=== PATIENT | female | born 1930 | race Native Hawaiian/Other Pacific Islander ===

== ENCOUNTER 2016-06-11 09:03 | Inpatient (IN) | payer OTHER | END 2016-07-12 08:00 | disposition still patient (30) | LOC: PAVB 09:03 | PROVIDERS: ADMIT Internal Medicine | DX: Z51.89 Encounter for other specified aftercare (principal) ==

== ENCOUNTER 2016-07-12 09:00 | Inpatient (IN) | payer OTHER ==
[2016-08-07] MEDS ORDERED: AMLO2.5T PO (06:51)
[2016-08-07] MEDS ORDERED: ATEN50TA36 PO (06:52)
[2016-08-07] MEDS ORDERED: CULTURELL3 PO (06:52)
[2016-08-07] MEDS ORDERED: FURO20TA67 PO (06:53)
[2016-08-07] MEDS ORDERED: GABA400C2 PO (06:54)
[2016-08-07] MEDS ORDERED: MAGNESIUM OXID400 M1 PO (06:54)
[2016-08-07] MEDS ORDERED: METF500T PO (06:55)
[2016-08-07] MEDS ORDERED: SINGULAIR10 MG PO (06:56)
[2016-08-07] MEDS ORDERED: MULTIVITAMI1 PO (06:57)
[2016-08-07] MEDS ORDERED: NAPROSYN500 MG PO (06:57)
[2016-08-07] MEDS ORDERED: OXYB5TAB56 PO (06:59)
[2016-08-07] MEDS ORDERED: OMEP40CA PO (06:59)
[2016-08-07] MEDS ORDERED: DEXTLIQ63 PO (07:00)
[2016-08-07] MEDS ORDERED: WARF3TAB12 PO (07:01)
[2016-08-07] MEDS ORDERED: VALSARTAN160 MG PO (07:01)
[2016-08-07] MEDS ORDERED: LORA10TA3 PO (07:02)
[2016-08-07] MEDS ORDERED: [UNRECOGNIZED DRUG - CODE] PO (07:04)
[2016-08-07] MEDS ORDERED: CALCIUM CARBON600 MG PO (07:05)
[2016-08-07] MEDS ORDERED: ARTIFICIAL TEAR1 OP (07:06)
[2016-08-07] MEDS ORDERED: BENADRYL ALLERG25 M1 PO (07:07)
[2016-08-07] MEDS ORDERED: ONDA4TAB3 PO (07:08)
[2016-08-07] MEDS ORDERED: TRAM50TA PO (07:08)
== END 2016-08-12 10:54 | disposition still patient (30) ==
LOC: PAVB 09:00
PROVIDERS: ADMIT Internal Medicine
DX: Z51.89 Encounter for other specified aftercare (principal)

== ENCOUNTER 2016-07-13 07:14 | Outpatient (CLI) | payer OTHER | END 2016-07-13 19:19 | disposition home or self-care (01) | LOC: LAB 07:14 | DX: Z79.899 Other long term (current) drug therapy (principal); Z51.81 Encounter for therapeutic drug level monitoring | CPT/HCPCS: 36415; 85610 ==

== ENCOUNTER 2016-08-07 06:34 | Emergency (ER) | payer OTHER ==
[~2016-08-07] VITALS: Ht 165.1 cm; Wt 70.8 kg
[2016-08-07] MEDS ORDERED: AMLO2.5T PO (06:51)
[2016-08-07] MEDS ORDERED: CULTURELL3 PO (06:52)
[2016-08-07] MEDS ORDERED: ATEN50TA36 PO (06:52)
[2016-08-07] MEDS ORDERED: FURO20TA67 PO (06:53)
[2016-08-07] MEDS ORDERED: GABA400C2 PO (06:54)
[2016-08-07] MEDS ORDERED: MAGNESIUM OXID400 M1 PO (06:54)
[2016-08-07] MEDS ORDERED: METF500T PO (06:55)
[2016-08-07] MEDS ORDERED: SINGULAIR10 MG PO (06:56)
[2016-08-07] MEDS ORDERED: MULTIVITAMI1 PO (06:57)
[2016-08-07] MEDS ORDERED: NAPROSYN500 MG PO (06:57)
[2016-08-07] MEDS ORDERED: OMEP40CA PO (06:59)
[2016-08-07] MEDS ORDERED: OXYB5TAB56 PO (06:59)
[2016-08-07] MEDS ORDERED: DEXTLIQ63 PO (07:00)
[2016-08-07] MEDS ORDERED: VALSARTAN160 MG PO (07:01)
[2016-08-07] MEDS ORDERED: WARF3TAB12 PO (07:01)
[2016-08-07] MEDS ORDERED: LORA10TA3 PO (07:02)
[2016-08-07] MEDS ORDERED: [UNRECOGNIZED DRUG - CODE] PO (07:04)
[2016-08-07] MEDS ORDERED: CALCIUM CARBON600 MG PO (07:05)
[2016-08-07] MEDS ORDERED: ARTIFICIAL TEAR1 OP (07:06)
[2016-08-07] MEDS ORDERED: BENADRYL ALLERG25 M1 PO (07:07)
[2016-08-07] MEDS ORDERED: TRAM50TA PO (07:08)
[2016-08-07] MEDS ORDERED: ONDA4TAB3 PO (07:08)
[2016-08-07 07:54] VITALS: BP 140/72; TEMP 98.1
== END 2016-08-07 08:27 ==
LOC: ED 06:34
PROC: 2W3RX1Z Immobilization of Left Lower Leg using Splint (ICD-10-PCS; principal; 2016-08-07)
DX: S82.392A Other fracture of lower end of left tibia, initial encounter for closed fracture (principal); S82.832A Other fracture of upper and lower end of left fibula, initial encounter for closed fracture; W01.0XXA Fall on same level from slipping, tripping and stumbling without subsequent striking against object, initial encounter; Y92.128 Other place in nursing home as the place of occurrence of the external cause
CPT/HCPCS: 99283; J1885

== ENCOUNTER 2016-08-10 05:53 | Outpatient (CLI) | payer OTHER ==
[~2016-08-10 05:53] MED LIST: AMLO2.5T PO; ARTIFICIAL TEAR1 OP; ATEN50TA36 PO; BENADRYL ALLERG25 M1 PO; CALCIUM CARBON600 MG PO; CULTURELL3 PO; DEXTLIQ63 PO; FURO20TA67 PO; GABA400C2 PO; LORA10TA3 PO; MAGNESIUM OXID400 M1 PO; METF500T PO; MULTIVITAMI1 PO; NAPROSYN500 MG PO; OMEP40CA PO; ONDA4TAB3 PO; OXYB5TAB56 PO; SINGULAIR10 MG PO; TRAM50TA PO; VALSARTAN160 MG PO; WARF3TAB12 PO; [UNRECOGNIZED DRUG - CODE] PO
== END 2016-08-10 19:50 | disposition home or self-care (01) ==
LOC: LAB 05:53
DX: R41.82 Altered mental status, unspecified (principal)
CPT/HCPCS: 81000; 87077; 87086; 87088; 87186

== ENCOUNTER 2016-08-11 09:59 | Outpatient (CLI) | payer OTHER | END 2016-08-11 19:44 | disposition home or self-care (01) | LOC: RAD 09:59 | DX: M85.88 Other specified disorders of bone density and structure, other site (principal) ==

== ENCOUNTER 2016-08-12 11:43 | Inpatient (IN) | payer OTHER | END 2016-09-09 12:34 | disposition still patient (30) | LOC: PAVB 11:43 | PROVIDERS: ADMIT Internal Medicine | DX: Z51.89 Encounter for other specified aftercare (principal) ==

== ENCOUNTER 2016-08-14 06:06 | Outpatient (CLI) | payer OTHER | END 2016-08-14 07:06 | disposition home or self-care (01) | LOC: LAB 06:06 | DX: Z79.899 Other long term (current) drug therapy (principal); Z51.81 Encounter for therapeutic drug level monitoring | CPT/HCPCS: 36415; 85610 ==

== ENCOUNTER 2016-08-23 15:28 | Outpatient (CLI) | payer OTHER | END 2016-08-23 18:54 | disposition home or self-care (01) | LOC: RAD 15:28 | DX: S82.232D Displaced oblique fracture of shaft of left tibia, subsequent encounter for closed fracture with routine healing (principal) ==

== ENCOUNTER 2016-08-30 22:39 | Outpatient (CLI) | payer OTHER | END 2016-08-30 23:00 | disposition home or self-care (01) | LOC: LAB 22:39 | DX: N39.0 Urinary tract infection, site not specified (principal) | CPT/HCPCS: 81000 ==

== ENCOUNTER 2016-09-03 14:21 | Outpatient (CLI) | payer OTHER | END 2016-09-03 19:24 | disposition home or self-care (01) | LOC: LAB 14:21 | DX: R41.82 Altered mental status, unspecified (principal) | CPT/HCPCS: 36415; 82140 ==

== ENCOUNTER 2016-09-09 12:47 | Inpatient (IN) | payer OTHER | END 2016-10-10 08:10 | disposition still patient (30) | LOC: PAVB 12:47 | PROVIDERS: ADMIT Internal Medicine | DX: Z51.89 Encounter for other specified aftercare (principal) ==

== ENCOUNTER 2016-09-10 06:25 | Outpatient (CLI) | payer OTHER | END 2016-09-10 19:28 | disposition home or self-care (01) | LOC: LAB 06:25 | DX: Z51.81 Encounter for therapeutic drug level monitoring (principal) | CPT/HCPCS: 36415; 85610 ==

== ENCOUNTER 2016-09-13 14:38 | Outpatient (CLI) | payer OTHER | END 2016-09-13 19:00 | disposition home or self-care (01) | LOC: RAD 14:38 | DX: S82.832D Other fracture of upper and lower end of left fibula, subsequent encounter for closed fracture with routine healing (principal); S82.392D Other fracture of lower end of left tibia, subsequent encounter for closed fracture with routine healing ==

== ENCOUNTER 2016-09-14 03:52 | Outpatient (CLI) | payer OTHER | END 2016-09-14 19:30 | disposition home or self-care (01) | LOC: LAB 03:52 | DX: Z51.81 Encounter for therapeutic drug level monitoring (principal) | CPT/HCPCS: 36415; 85610 ==

== ENCOUNTER 2016-10-04 18:04 | Outpatient (CLI) | payer OTHER | END 2016-10-04 18:59 | disposition home or self-care (01) | LOC: RAD 18:04 | DX: S82.292D Other fracture of shaft of left tibia, subsequent encounter for closed fracture with routine healing (principal); S82.492D Other fracture of shaft of left fibula, subsequent encounter for closed fracture with routine healing ==

== ENCOUNTER 2016-10-10 09:07 | Inpatient (IN) | payer OTHER | END 2016-11-09 09:17 | disposition still patient (30) | LOC: PAVB 09:07 | PROVIDERS: ADMIT Internal Medicine | DX: A41.9 Sepsis, unspecified organism (principal); N39.0 Urinary tract infection, site not specified; M62.81 Muscle weakness (generalized); M84.469D Pathological fracture, unspecified tibia and fibula, subsequent encounter for fracture with routine healing; F02.81 Dementia in other diseases classified elsewhere, unspecified severity, with behavioral disturbance; R26.9 Unspecified abnormalities of gait and mobility | CPT/HCPCS: 81000; 87081; J0696 ==

== ENCOUNTER 2016-10-13 04:52 | Outpatient (CLI) | payer OTHER | END 2016-10-13 05:52 | disposition home or self-care (01) | LOC: LAB 04:52 | DX: Z51.81 Encounter for therapeutic drug level monitoring (principal) | CPT/HCPCS: 85610 ==

== ENCOUNTER 2016-10-15 04:35 | Outpatient (CLI) | payer OTHER | END 2016-10-15 19:01 | disposition home or self-care (01) | LOC: LAB 04:35 | DX: N39.0 Urinary tract infection, site not specified (principal) | CPT/HCPCS: 81000; 87077; 87086; 87088; 87186 ==

== ENCOUNTER 2016-10-18 05:37 | Outpatient (CLI) | payer OTHER ==
[2016-10-18 06:15] LABS: PLATELET COUNT 252 K/uL (152-353)
== END 2016-10-18 21:15 | disposition home or self-care (01) ==
LOC: LAB 05:37
PROVIDERS: Internal Medicine
DX: R50.9 Fever, unspecified (principal)
CPT/HCPCS: 36415; 85027

== ENCOUNTER 2016-10-18 12:08 | Inpatient (IN) | payer OTHER ==
[2016-10-18] VITALS (30 sets, daily range): BP systolic 76–143; BP diastolic 36–133; TEMP 98.4–102.9; Ht 152.4 cm; Wt 67.7 kg
[~2016-10-18] VITALS: Ht 152.4 cm; Wt 67.7 kg
[2016-10-18 12:53] LABS: PLATELET COUNT 228 K/uL (152-353)
[2016-10-18 12:55] LABS: POTASSIUM 3.9 mmol/L (3.6-5.2)
[2016-10-19] VITALS (45 sets, daily range): BP systolic 76–154; BP diastolic 33–105; TEMP 97.8–100.6
[2016-10-19 00:31] LABS: PLATELET COUNT 201 K/uL (152-353)
[2016-10-19 00:37] LABS: POTASSIUM 3.9 mmol/L (3.6-5.2)
[2016-10-19 07:31] LABS: PLATELET COUNT 199 K/uL (152-353)
[2016-10-19 08:42] LABS: POTASSIUM 4.3 mmol/L (3.6-5.2)
[2016-10-19 19:11] LABS: POTASSIUM 3.6 mmol/L (3.6-5.2)
[2016-10-20] VITALS (12 sets, daily range): BP systolic 108–157; BP diastolic 48–81; TEMP 96.8–98.9
[2016-10-20 06:49] LABS: PLATELET COUNT 205 K/uL (152-353)
[2016-10-20 06:50] LABS: POTASSIUM 3.3 mmol/L (3.6-5.2)
[2016-10-21] VITALS: BP 107/49; TEMP 98.7
[2016-10-21 04:00] VITALS: BP 118/51; TEMP 99
[2016-10-21 07:57] LABS: PLATELET COUNT 217 K/uL (152-353)
[2016-10-21 08:00] VITALS: BP 154/65; TEMP 98.1
[2016-10-21 08:14] LABS: POTASSIUM 3.3 mmol/L (3.6-5.2)
[2016-10-21 12:14] VITALS: BP 128/67; TEMP 97.8
[2016-10-21 16:00] VITALS: BP 143/59; TEMP 98
[2016-10-21 20:00] VITALS: BP 106/53; TEMP 98.4
[2016-10-22] VITALS: BP 113/39; TEMP 98.6
[2016-10-22 04:00] VITALS: BP 100/37; TEMP 98.6
[2016-10-22 05:19] LABS: PLATELET COUNT 214 K/uL (152-353)
[2016-10-22 05:38] LABS: POTASSIUM 3.6 mmol/L (3.6-5.2)
[2016-10-22 08:00] VITALS: BP 96/44; TEMP 98.6
[2016-10-22 12:00] VITALS: BP 123/63; TEMP 98.8
== END 2016-10-22 15:15 | DRG 872 ==
LOC: ED 12:08 → ICU 13:42 → MED/SURG 10-20 16:45
PROVIDERS: Emergency Medicine; ADMIT Specialist
PROC: 02HV33Z Insertion of Infusion Device into Superior Vena Cava, Percutaneous Approach (ICD-10-PCS; principal; 2016-10-19)
DX: A41.89 Other specified sepsis (principal); N39.0 Urinary tract infection, site not specified; E87.3 Alkalosis; B96.20 Unspecified Escherichia coli [E. coli] as the cause of diseases classified elsewhere; R41.82 Altered mental status, unspecified; I95.89 Other hypotension; R09.02 Hypoxemia; E11.9 Type 2 diabetes mellitus without complications; E86.0 Dehydration; R09.89 Other specified symptoms and signs involving the circulatory and respiratory systems; R50.9 Fever, unspecified
CPT/HCPCS: 36415; 36591; 36600; 51702; 80053; 81000; 82550; 82805; 82962; 83036; 83605; 83735; 83880; 84100; 84484; 85027; 85379; 85610; 87040; 87077; 87086; 87088; 87186; 93005; 93306; 94640; 94664; 94760; 96361; 96365; 96366; 96372; 96375; 99285; C1751; J1265; J1650; J1720; J1815; J1940; J2185; J3411; J3475; J3480; J3490

== ENCOUNTER 2016-11-09 10:33 | Inpatient (IN) | payer OTHER ==
[2016-11-22] MEDS ORDERED: DIOVAN320 MG PO (14:58)
[2016-11-22] MEDS ORDERED: ASCO500T18 PO (15:00)
[2016-11-22] MEDS ORDERED: ALEN70TA19 PO (15:01)
[2016-11-22] MEDS ORDERED: RISP0.5T2 PO (15:03)
== END 2016-12-10 10:16 | disposition still patient (30) ==
LOC: PAVB 10:33
PROVIDERS: ADMIT Internal Medicine
DX: A41.9 Sepsis, unspecified organism (principal); N39.0 Urinary tract infection, site not specified; M62.81 Muscle weakness (generalized); M84.469D Pathological fracture, unspecified tibia and fibula, subsequent encounter for fracture with routine healing; F02.81 Dementia in other diseases classified elsewhere, unspecified severity, with behavioral disturbance; R26.9 Unspecified abnormalities of gait and mobility
CPT/HCPCS: 85610

== ENCOUNTER 2016-11-21 11:39 | Outpatient (CLI) | payer OTHER ==
[2016-11-22] MEDS ORDERED: DIOVAN320 MG PO (14:58)
[2016-11-22] MEDS ORDERED: ASCO500T18 PO (15:00)
[2016-11-22] MEDS ORDERED: ALEN70TA19 PO (15:01)
[2016-11-22] MEDS ORDERED: RISP0.5T2 PO (15:03)
== END 2016-11-21 21:07 | disposition home or self-care (01) ==
LOC: LAB 11:39
DX: R41.82 Altered mental status, unspecified (principal); Z87.440 Personal history of urinary (tract) infections
CPT/HCPCS: 81000; 87077; 87086; 87088; 87185; 87186

== ENCOUNTER 2016-11-22 11:14 | Inpatient (IN) | payer OTHER ==
[2016-11-22] VITALS (22 sets, daily range): BP systolic 80–114; BP diastolic 34–87; TEMP 97.5–100; Ht 172.7 cm; Wt 61.3 kg
[~2016-11-22] VITALS: Ht 172.7 cm; Wt 61.3 kg
[2016-11-22 13:15] LABS: PLATELET COUNT 300 K/uL (152-353)
[2016-11-22 13:26] LABS: POTASSIUM 4.2 mmol/L (3.6-5.2)
[2016-11-22] MEDS ORDERED: DIOVAN320 MG PO (14:58)
[2016-11-22] MEDS ORDERED: ASCO500T18 PO (15:00)
[2016-11-22] MEDS ORDERED: ALEN70TA19 PO (15:01)
[2016-11-22] MEDS ORDERED: RISP0.5T2 PO (15:03)
[2016-11-23] VITALS (25 sets, daily range): BP systolic 75–141; BP diastolic 39–116; TEMP 97.6–99.5
[2016-11-23 05:13] LABS: PLATELET COUNT 302 K/uL (152-353)
[2016-11-23 05:37] LABS: POTASSIUM 4.4 mmol/L (3.6-5.2)
[2016-11-24] VITALS (17 sets, daily range): BP systolic 100–158; BP diastolic 56–93; TEMP 98–98.4
[2016-11-24 06:24] LABS: PLATELET COUNT 285 K/uL (152-353)
[2016-11-24 06:38] LABS: POTASSIUM 3.6 mmol/L (3.6-5.2)
[2016-11-25] VITALS (17 sets, daily range): BP systolic 98–168; BP diastolic 42–94; TEMP 97–98.4
[2016-11-25 06:13] LABS: PLATELET COUNT 305 K/uL (152-353); POTASSIUM 4.2 mmol/L (3.6-5.2); SODIUM 136 mmol/L (136-145)
[2016-11-26] VITALS (7 sets, daily range): BP systolic 137–162; BP diastolic 8–84; TEMP 97.6–98.6
[2016-11-26 06:33] LABS: PLATELET COUNT 288 K/uL (152-353)
[2016-11-26 06:53] LABS: POTASSIUM 3.5 mmol/L (3.6-5.2); SODIUM 137 mmol/L (136-145)
== END 2016-11-26 17:45 | DRG 872 ==
LOC: ICU 11:14
PROVIDERS: Emergency Medicine; ADMIT Internal Medicine
PROC: 0DH63UZ Insertion of Feeding Device into Stomach, Percutaneous Approach (ICD-10-PCS; principal; 2016-11-23)
PROC: 02HV33Z Insertion of Infusion Device into Superior Vena Cava, Percutaneous Approach (ICD-10-PCS; 2016-11-25)
DX: A41.89 Other specified sepsis (principal); N39.0 Urinary tract infection, site not specified; B95.2 Enterococcus as the cause of diseases classified elsewhere; I95.89 Other hypotension; R41.82 Altered mental status, unspecified; K21.9 Gastro-esophageal reflux disease without esophagitis; E11.9 Type 2 diabetes mellitus without complications; I48.2 Chronic atrial fibrillation; R13.12 Dysphagia, oropharyngeal phase; Z87.440 Personal history of urinary (tract) infections
CPT/HCPCS: 36415; 36571; 51702; 80053; 81000; 82550; 82553; 82962; 83605; 83735; 84100; 84484; 85027; 85610; 87040; 87077; 87081; 87086; 87088; 87185; 87186; 93005; C1751; J0290; J1885; J2001; J2060; J2704; J2794; J3475; J3486; J3490

== ENCOUNTER 2016-11-29 13:44 | Outpatient (CLI) | payer OTHER ==
[~2016-11-29 13:44] MED LIST changes: +ALEN70TA19 PO; +ASCO500T18 PO; +DIOVAN320 MG PO; +RISP0.5T2 PO
== END 2016-11-29 15:00 | disposition home or self-care (01) ==
LOC: RAD 13:44
DX: S82.392K Other fracture of lower end of left tibia, subsequent encounter for closed fracture with nonunion (principal)

== ENCOUNTER 2016-12-10 10:29 | Inpatient (IN) | payer OTHER ==
[2016-12-14 07:23] LABS: POTASSIUM 5.1 mmol/L (3.6-5.2)
[2016-12-14 07:50] LABS: PLATELET COUNT 369 K/uL (152-353)
== END 2017-01-09 15:26 | disposition still patient (30) ==
LOC: PAVB 10:29
PROVIDERS: ADMIT Internal Medicine
DX: Z51.89 Encounter for other specified aftercare (principal)
CPT/HCPCS: 80053; 83036; 83735; 85007; 85027; 85610

== ENCOUNTER 2017-01-09 15:59 | Inpatient (IN) | payer OTHER | END 2017-02-09 09:48 | disposition still patient (30) | LOC: PAVB 15:59 | PROVIDERS: ADMIT Internal Medicine | DX: Z51.89 Encounter for other specified aftercare (principal) ==

== ENCOUNTER 2017-01-13 03:30 | Outpatient (CLI) | payer OTHER | END 2017-01-13 18:59 | disposition home or self-care (01) | LOC: LAB 03:30 | DX: Z79.899 Other long term (current) drug therapy (principal); Z79.01 Long term (current) use of anticoagulants; Z51.81 Encounter for therapeutic drug level monitoring; E83.42 Hypomagnesemia | CPT/HCPCS: 36415; 83735; 85610 ==

== ENCOUNTER 2017-02-09 11:22 | Inpatient (IN) | payer OTHER | END 2017-03-12 08:46 | disposition still patient (30) | LOC: PAVB 11:22 | PROVIDERS: ADMIT Internal Medicine | DX: Z51.89 Encounter for other specified aftercare (principal) ==

== ENCOUNTER 2017-02-10 13:29 | Outpatient (CLI) | payer OTHER | END 2017-02-10 19:39 | disposition home or self-care (01) | LOC: LAB 13:29 | DX: Z79.01 Long term (current) use of anticoagulants (principal); Z51.81 Encounter for therapeutic drug level monitoring | CPT/HCPCS: 36415; 85610 ==

== ENCOUNTER 2017-02-15 06:07 | Outpatient (CLI) | payer OTHER | END 2017-02-15 19:18 | disposition home or self-care (01) | LOC: LAB 06:07 | DX: Z79.899 Other long term (current) drug therapy (principal); Z51.81 Encounter for therapeutic drug level monitoring | CPT/HCPCS: 85610 ==

== ENCOUNTER 2017-03-12 09:33 | Inpatient (IN) | payer OTHER | END 2017-04-11 10:10 | disposition still patient (30) | LOC: PAVB 09:33 | PROVIDERS: ADMIT Internal Medicine | DX: Z51.89 Encounter for other specified aftercare (principal) ==

== ENCOUNTER 2017-03-15 06:50 | Outpatient (CLI) | payer OTHER | END 2017-03-15 18:58 | disposition home or self-care (01) | LOC: LAB 06:50 | DX: Z51.81 Encounter for therapeutic drug level monitoring (principal) | CPT/HCPCS: 85610 ==

== ENCOUNTER 2017-04-11 10:21 | Inpatient (IN) | payer OTHER | END 2017-05-12 13:02 | disposition still patient (30) | LOC: PAVB 10:21 | PROVIDERS: ADMIT Internal Medicine ==

== ENCOUNTER 2017-04-13 06:21 | Outpatient (CLI) | payer OTHER | END 2017-04-13 07:25 | disposition home or self-care (01) | LOC: LAB 06:21 | DX: Z79.899 Other long term (current) drug therapy (principal); Z79.01 Long term (current) use of anticoagulants; Z51.81 Encounter for therapeutic drug level monitoring | CPT/HCPCS: 36415; 85610 ==

== ENCOUNTER 2017-05-12 14:10 | Inpatient (IN) | payer OTHER | END 2017-06-11 09:24 | disposition still patient (30) | LOC: PAVB 14:10 | PROVIDERS: ADMIT Internal Medicine ==

== ENCOUNTER 2017-05-17 11:37 | Outpatient (CLI) | payer OTHER | END 2017-05-17 12:40 | disposition home or self-care (01) | LOC: LAB 11:37 | DX: Z79.899 Other long term (current) drug therapy (principal); Z51.81 Encounter for therapeutic drug level monitoring | CPT/HCPCS: 85610 ==

== ENCOUNTER 2017-06-09 08:32 | Outpatient (CLI) | payer OTHER | END 2017-06-09 19:32 | disposition home or self-care (01) | LOC: CT 08:32 | DX: R29.6 Repeated falls (principal); S00.83XA Contusion of other part of head, initial encounter; R22.0 Localized swelling, mass and lump, head; R07.81 Pleurodynia ==

== ENCOUNTER 2017-06-10 18:55 | Outpatient (CLI) | payer OTHER | END 2017-06-10 20:00 | disposition home or self-care (01) | LOC: RAD 18:55 | DX: M79.641 Pain in right hand (principal); M25.531 Pain in right wrist ==

== ENCOUNTER 2017-06-11 10:01 | Inpatient (IN) | payer OTHER | END 2017-07-12 09:43 | disposition still patient (30) | LOC: PAVB 10:01 | PROVIDERS: ADMIT Internal Medicine ==

== ENCOUNTER 2017-06-14 06:09 | Outpatient (CLI) | payer OTHER | END 2017-06-14 07:10 | disposition home or self-care (01) | LOC: LAB 06:09 | DX: Z79.899 Other long term (current) drug therapy (principal); Z51.81 Encounter for therapeutic drug level monitoring | CPT/HCPCS: 36415; 85610 ==

== ENCOUNTER 2017-07-12 10:48 | Inpatient (IN) | payer OTHER | END 2017-08-12 09:59 | disposition still patient (30) | LOC: PAVB 10:48 | PROVIDERS: ADMIT Internal Medicine ==

== ENCOUNTER 2017-07-13 06:34 | Outpatient (CLI) | payer OTHER | END 2017-07-13 21:15 | disposition home or self-care (01) | LOC: LAB 06:34 | DX: Z79.899 Other long term (current) drug therapy (principal); Z51.81 Encounter for therapeutic drug level monitoring | CPT/HCPCS: 85610 ==

== ENCOUNTER 2017-08-12 11:04 | Inpatient (IN) | payer OTHER | END 2017-09-09 09:23 | disposition still patient (30) | LOC: PAVB 11:04 | PROVIDERS: ADMIT Internal Medicine ==

== ENCOUNTER 2017-08-16 05:55 | Outpatient (CLI) | payer OTHER | END 2017-08-16 20:21 | disposition home or self-care (01) | LOC: LAB 05:55 | DX: Z79.899 Other long term (current) drug therapy (principal); Z51.81 Encounter for therapeutic drug level monitoring | CPT/HCPCS: 36415; 85610 ==

== ENCOUNTER 2017-09-09 10:27 | Inpatient (IN) | payer OTHER | END 2017-10-10 08:00 | disposition still patient (30) | LOC: PAVB 10:27 | PROVIDERS: ADMIT Internal Medicine ==

== ENCOUNTER 2017-09-27 04:31 | Outpatient (CLI) | payer OTHER | END 2017-09-27 19:17 | disposition home or self-care (01) | LOC: LAB 04:31 | DX: Z51.81 Encounter for therapeutic drug level monitoring (principal) | CPT/HCPCS: 36415; 85610 ==

== ENCOUNTER 2017-10-10 09:00 | Inpatient (IN) | payer OTHER | END 2017-11-09 09:09 | disposition still patient (30) | LOC: PAVB 09:00 | PROVIDERS: ADMIT Internal Medicine ==

== ENCOUNTER 2017-10-13 06:20 | Outpatient (CLI) | payer OTHER | END 2017-10-13 22:24 | disposition home or self-care (01) | LOC: LAB 06:20 | DX: Z79.899 Other long term (current) drug therapy (principal); Z51.81 Encounter for therapeutic drug level monitoring | CPT/HCPCS: 85610 ==

== ENCOUNTER 2017-11-01 15:34 | Outpatient (CLI) | payer OTHER | END 2017-11-01 22:52 | disposition home or self-care (01) | LOC: CT 15:34 | DX: R41.82 Altered mental status, unspecified (principal) ==

== ENCOUNTER 2017-11-09 10:08 | Inpatient (IN) | payer OTHER | END 2017-12-10 08:56 | disposition still patient (30) | LOC: PAVB 10:08 | PROVIDERS: ADMIT Internal Medicine ==

== ENCOUNTER 2017-11-10 09:39 | Outpatient (CLI) | payer OTHER | END 2017-11-10 21:39 | disposition home or self-care (01) | LOC: LAB 09:39 | DX: I48.0 Paroxysmal atrial fibrillation (principal); Z79.899 Other long term (current) drug therapy; Z51.81 Encounter for therapeutic drug level monitoring | CPT/HCPCS: 85610 ==

== ENCOUNTER 2017-12-10 09:55 | Inpatient (IN) | payer OTHER | END 2018-01-09 15:02 | disposition still patient (30) | LOC: PAVB 09:55 | PROVIDERS: ADMIT Internal Medicine ==

== ENCOUNTER 2017-12-15 08:26 | Outpatient (CLI) | payer OTHER ==
[2017-12-15 08:41] LABS: PLATELET COUNT 327 K/uL (152-353)
[2017-12-15 08:50] LABS: POTASSIUM 3.9 mmol/L (3.6-5.2)
== END 2017-12-15 21:41 | disposition home or self-care (01) ==
LOC: LAB 08:26
PROVIDERS: Internal Medicine
DX: Z79.899 Other long term (current) drug therapy (principal); Z51.81 Encounter for therapeutic drug level monitoring; I10 Essential (primary) hypertension; E11.9 Type 2 diabetes mellitus without complications; E83.42 Hypomagnesemia; I48.0 Paroxysmal atrial fibrillation
CPT/HCPCS: 36415; 80053; 80061; 83036; 83735; 85027; 85610

== ENCOUNTER 2018-01-09 15:52 | Inpatient (IN) | payer OTHER | END 2018-02-09 08:00 | disposition still patient (30) | LOC: PAVB 15:52 | PROVIDERS: ADMIT Internal Medicine ==

== ENCOUNTER 2018-01-13 08:34 | Outpatient (CLI) | payer OTHER | END 2018-01-13 19:32 | disposition home or self-care (01) | LOC: LAB 08:34 | DX: Z79.899 Other long term (current) drug therapy (principal); Z79.01 Long term (current) use of anticoagulants; Z51.81 Encounter for therapeutic drug level monitoring | CPT/HCPCS: 85610 ==

== ENCOUNTER 2018-02-09 09:00 | Inpatient (IN) | payer OTHER | END 2018-03-12 10:21 | disposition still patient (30) | LOC: PAVB 09:00 | PROVIDERS: ADMIT Internal Medicine ==

== ENCOUNTER 2018-02-15 05:54 | Outpatient (CLI) | payer OTHER | END 2018-02-15 19:01 | disposition home or self-care (01) | LOC: LAB 05:54 | DX: Z79.01 Long term (current) use of anticoagulants (principal) | CPT/HCPCS: 36415; 85610 ==

== ENCOUNTER 2018-02-19 05:19 | Outpatient (CLI) | payer OTHER | END 2018-02-19 21:31 | disposition home or self-care (01) | LOC: LAB 05:19 | DX: Z51.81 Encounter for therapeutic drug level monitoring (principal) | CPT/HCPCS: 85610 ==

== ENCOUNTER 2018-02-23 14:55 | Outpatient (CLI) | payer OTHER | END 2018-02-23 23:59 | disposition home or self-care (01) | LOC: LAB 14:55 | DX: R19.7 Diarrhea, unspecified (principal) | CPT/HCPCS: 87015; 87045; 87205; 87324; 87328; 87329; 87449; 87899 ==

== ENCOUNTER 2018-03-03 06:12 | Outpatient (CLI) | payer OTHER | END 2018-03-03 19:29 | disposition home or self-care (01) | LOC: LAB 06:12 | DX: Z79.899 Other long term (current) drug therapy (principal); Z79.01 Long term (current) use of anticoagulants | CPT/HCPCS: 36415; 85610 ==

== ENCOUNTER 2018-03-12 10:33 | Inpatient (IN) | payer OTHER | END 2018-04-11 09:37 | disposition still patient (30) | LOC: PAVB 10:33 | PROVIDERS: ADMIT Internal Medicine ==

== ENCOUNTER 2018-03-14 07:10 | Outpatient (CLI) | payer OTHER | END 2018-03-14 19:13 | disposition home or self-care (01) | LOC: LAB 07:10 | DX: E11.9 Type 2 diabetes mellitus without complications (principal); Z79.899 Other long term (current) drug therapy; Z79.01 Long term (current) use of anticoagulants | CPT/HCPCS: 83036; 85610 ==

== ENCOUNTER 2018-03-28 10:54 | Outpatient (CLI) | payer OTHER | END 2018-03-28 19:46 | disposition home or self-care (01) | LOC: LAB 10:54 | DX: Z51.81 Encounter for therapeutic drug level monitoring (principal); I48.0 Paroxysmal atrial fibrillation | CPT/HCPCS: 85610 ==

== ENCOUNTER 2018-04-11 12:25 | Inpatient (IN) | payer OTHER | END 2018-05-12 08:51 | disposition still patient (30) | LOC: PAVB 12:25 | PROVIDERS: ADMIT Internal Medicine ==

== ENCOUNTER 2018-04-14 05:57 | Outpatient (CLI) | payer OTHER | END 2018-04-14 20:30 | disposition home or self-care (01) | LOC: LAB 05:57 | DX: Z79.899 Other long term (current) drug therapy (principal); R79.1 Abnormal coagulation profile | CPT/HCPCS: 36415; 85610 ==

== ENCOUNTER 2018-04-27 09:46 | Outpatient (CLI) | payer OTHER | END 2018-04-27 19:18 | disposition home or self-care (01) | LOC: RESP 09:46 | DX: I50.9 Heart failure, unspecified (principal); R60.1 Generalized edema | CPT/HCPCS: 93306 ==

== ENCOUNTER 2018-05-02 09:33 | Outpatient (CLI) | payer OTHER ==
[2018-05-02 10:31] LABS: POTASSIUM 3.6 mmol/L (3.6-5.2)
== END 2018-05-02 19:52 | disposition home or self-care (01) ==
LOC: LAB 09:33
PROVIDERS: Emergency Medicine
DX: R60.9 Edema, unspecified (principal)
CPT/HCPCS: 80048

== ENCOUNTER 2018-05-12 09:20 | Inpatient (IN) | payer OTHER | END 2018-06-11 08:36 | disposition still patient (30) | LOC: PAVB 09:20 | PROVIDERS: ADMIT Internal Medicine ==

== ENCOUNTER 2018-05-17 04:12 | Outpatient (CLI) | payer OTHER | END 2018-05-17 22:10 | disposition home or self-care (01) | LOC: LAB 04:12 | DX: Z79.899 Other long term (current) drug therapy (principal) | CPT/HCPCS: 36415; 85610 ==

== ENCOUNTER 2018-06-11 08:51 | Inpatient (IN) | payer OTHER | END 2018-07-12 11:08 | disposition still patient (30) | LOC: PAVB 08:51 | PROVIDERS: ADMIT Internal Medicine ==

== ENCOUNTER 2018-06-14 04:55 | Outpatient (CLI) | payer OTHER ==
[2018-06-14 06:14] LABS: PLATELET COUNT 264 K/uL (152-353)
[2018-06-14 06:24] LABS: POTASSIUM 4.4 mmol/L (3.6-5.2)
== END 2018-06-14 21:18 | disposition home or self-care (01) ==
LOC: LAB 04:55
PROVIDERS: Internal Medicine
DX: I10 Essential (primary) hypertension (principal); Z79.899 Other long term (current) drug therapy; R79.1 Abnormal coagulation profile
CPT/HCPCS: 36415; 80053; 83036; 83735; 85027; 85610

== ENCOUNTER 2018-07-12 11:41 | Inpatient (IN) | payer OTHER | END 2018-08-12 13:45 | disposition still patient (30) | LOC: PAVB 11:41 | PROVIDERS: ADMIT Internal Medicine | DX: N39.0 Urinary tract infection, site not specified (principal); B96.20 Unspecified Escherichia coli [E. coli] as the cause of diseases classified elsewhere; B96.5 Pseudomonas (aeruginosa) (mallei) (pseudomallei) as the cause of diseases classified elsewhere; F02.81 Dementia in other diseases classified elsewhere, unspecified severity, with behavioral disturbance; F06.31 Mood disorder due to known physiological condition with depressive features; I10 Essential (primary) hypertension; I48.91 Unspecified atrial fibrillation; N32.81 Overactive bladder; A41.89 Other specified sepsis; R41.82 Altered mental status, unspecified ==

== ENCOUNTER 2018-07-13 06:11 | Outpatient (CLI) | payer OTHER | END 2018-07-13 21:30 | disposition home or self-care (01) | LOC: LAB 06:11 | DX: Z79.899 Other long term (current) drug therapy (principal); R79.1 Abnormal coagulation profile | CPT/HCPCS: 85610 ==

== ENCOUNTER 2018-07-23 05:37 | Outpatient (CLI) | payer OTHER | END 2018-07-23 19:08 | disposition home or self-care (01) | LOC: LAB 05:37 | DX: R41.82 Altered mental status, unspecified (principal) | CPT/HCPCS: 81000; 87077; 87086; 87088; 87186 ==

== ENCOUNTER 2018-08-02 15:15 | Inpatient (IN) | payer OTHER ==
[~2018-08-02] VITALS: Ht 165.1 cm; Wt 61.0 kg
[2018-08-02 16:39] LABS: PLATELET COUNT 362 K/uL (152-353)
[2018-08-02 19:20] VITALS: BP 99/55; TEMP 97.7
[2018-08-02 20:00] VITALS: BP 107/58
[2018-08-02 21:00] VITALS: BP 111/53; BP 89/89
[2018-08-02 21:29] VITALS: BP 99/55; TEMP 97.7; Ht 165.1 cm; Wt 61.0 kg
[2018-08-02 22:00] VITALS: BP 101/52; BP 110/56; BP 92/96
[2018-08-02 23:00] VITALS: BP 120/46; BP 90/89
[2018-08-03] VITALS (21 sets, daily range): BP systolic 89–121; BP diastolic 35–101; TEMP 98.6–99.3
[2018-08-03 06:20] LABS: PLATELET COUNT 332 K/uL (152-353)
[2018-08-03 06:42] LABS: POTASSIUM 3.2 mmol/L (3.6-5.2)
[2018-08-03 15:57] LABS: POTASSIUM 3.6 mmol/L (3.6-5.2)
[2018-08-03 18:41] LABS: POTASSIUM 3.8 mmol/L (3.6-5.2)
[2018-08-04] VITALS (23 sets, daily range): BP systolic 98–1232; BP diastolic 34–86; TEMP 98.1–99.7
[2018-08-04 06:42] LABS: PLATELET COUNT 243 K/uL (152-353)
[2018-08-04 15:18] LABS: POTASSIUM 3.7 mmol/L (3.6-5.2)
[2018-08-05] VITALS (16 sets, daily range): BP systolic 130–164; BP diastolic 45–663; TEMP 97.7–99.2
[2018-08-05 06:28] LABS: PLATELET COUNT 218 K/uL (152-353)
[2018-08-05 06:46] LABS: POTASSIUM 3.8 mmol/L (3.6-5.2)
[2018-08-06] VITALS: BP 161/62; TEMP 98.8
[2018-08-06 04:00] VITALS: BP 134/52; TEMP 98.4
[2018-08-06 06:32] LABS: PLATELET COUNT 205 K/uL (152-353)
[2018-08-06 06:44] LABS: POTASSIUM 3.6 mmol/L (3.6-5.2)
[2018-08-06 06:52] VITALS: BP 180/64
== END 2018-08-06 11:30 | DRG 871 ==
LOC: LAB 15:15 → MED/SURG 18:00 → ICU 18:00 → MED/SURG 18:00 → ICU 19:15 → MED/SURG 19:15 → ICU 19:15 → UNDODEPCLI 08-04 21:16 → MED/SURG 08-05 15:20
PROVIDERS: ADMIT Internal Medicine
DX: A41.89 Other specified sepsis (principal); J96.01 Acute respiratory failure with hypoxia; N39.0 Urinary tract infection, site not specified; N17.8 Other acute kidney failure; B96.20 Unspecified Escherichia coli [E. coli] as the cause of diseases classified elsewhere; I95.89 Other hypotension; G30.8 Other Alzheimer's disease; F02.80 Dementia in other diseases classified elsewhere, unspecified severity, without behavioral disturbance, psychotic disturbance, mood disturbance, and anxiety; I10 Essential (primary) hypertension; E11.65 Type 2 diabetes mellitus with hyperglycemia; I48.2 Chronic atrial fibrillation; E86.0 Dehydration; K21.9 Gastro-esophageal reflux disease without esophagitis; G25.81 Restless legs syndrome
CPT/HCPCS: 36600; 80048; 80053; 81000; 82805; 82947; 83605; 83630; 83735; 85027; 87015; 87040; 87045; 87077; 87086; 87088; 87186; 87324; 87328; 87329; 87449; 87899; 93005; 94760; J1335; J3370; J3480; J3490

== ENCOUNTER 2018-08-12 14:01 | Inpatient (IN) | payer OTHER ==
[2018-08-31] MEDS ORDERED: ERTAPENEM1 GM IV (02:46)
[2018-09-06] MEDS ORDERED: GABA300C2 PO (02:22)
[2018-09-06] MEDS ORDERED: DULO60CA2 PO (02:26)
[2018-09-06] MEDS ORDERED: MULTI VITAMIN1 TAB PO (02:28)
[2018-09-06] MEDS ORDERED: ZANTAC300 MG PO (02:30)
[2018-09-06] MEDS ORDERED: SPIRONOLACT25 MG PO (02:31)
[2018-09-06] MEDS ORDERED: WARF4TAB7 PO (02:32)
== END 2018-09-09 11:42 | disposition still patient (30) ==
LOC: PAVB 14:01
PROVIDERS: ADMIT Internal Medicine

== ENCOUNTER 2018-08-15 10:58 | Outpatient (CLI) | payer OTHER | END 2018-08-15 20:54 | disposition home or self-care (01) | LOC: LAB 10:58 | DX: N39.0 Urinary tract infection, site not specified (principal); I48.0 Paroxysmal atrial fibrillation; Z51.81 Encounter for therapeutic drug level monitoring | CPT/HCPCS: 81000; 85610; 87077; 87088 ==

== ENCOUNTER 2018-08-23 11:21 | Outpatient (CLI) | payer OTHER ==
[2018-08-23 11:46] LABS: PLATELET COUNT 330 K/uL (152-353); POTASSIUM 3.1 mmol/L (3.6-5.2)
== END 2018-08-23 19:18 | disposition home or self-care (01) ==
LOC: LAB 11:21 → RAD 11:21 → LAB 19:18
PROVIDERS: Internal Medicine
DX: R41.82 Altered mental status, unspecified (principal); R50.9 Fever, unspecified
CPT/HCPCS: 80053; 81000; 85027

== ENCOUNTER 2018-08-28 21:49 | Outpatient (CLI) | payer OTHER | END 2018-08-28 23:59 | LOC: LAB 21:49 | DX: R41.82 Altered mental status, unspecified (principal) | CPT/HCPCS: 81000; 87088 ==

== ENCOUNTER 2018-09-05 16:23 | Outpatient (CLI) | payer OTHER ==
[~2018-09-05 16:23] MED LIST changes: +ERTAPENEM1 GM IV
[2018-09-05 16:33] LABS: PLATELET COUNT 230 K/uL (152-353)
[2018-09-05 16:45] LABS: POTASSIUM 3.5 mmol/L (3.6-5.2)
[2018-09-06] MEDS ORDERED: GABA300C2 PO (02:22)
[2018-09-06] MEDS ORDERED: DULO60CA2 PO (02:26)
[2018-09-06] MEDS ORDERED: MULTI VITAMIN1 TAB PO (02:28)
[2018-09-06] MEDS ORDERED: ZANTAC300 MG PO (02:30)
[2018-09-06] MEDS ORDERED: SPIRONOLACT25 MG PO (02:31)
[2018-09-06] MEDS ORDERED: WARF4TAB7 PO (02:32)
== END 2018-09-05 20:10 | disposition home or self-care (01) ==
LOC: LAB 16:23
PROVIDERS: Internal Medicine
DX: R41.82 Altered mental status, unspecified (principal); R73.9 Hyperglycemia, unspecified; R53.83 Other fatigue
CPT/HCPCS: 80048; 81000; 85027; 87088

== ENCOUNTER 2018-09-05 20:45 | Inpatient (IN) | payer OTHER ==
[~2018-09-05] VITALS: Ht 172.7 cm; Wt 59.9 kg
[2018-09-05 21:00] VITALS: BP 114/50
[2018-09-05 21:30] VITALS: BP 128/61
[2018-09-05 22:00] VITALS: BP 129/60
[2018-09-05 22:12] VITALS: BP 119/54; TEMP 99; Ht 172.7 cm; Wt 59.9 kg
[2018-09-05 23:00] VITALS: BP 107/55
[2018-09-05 23:19] LABS: POTASSIUM 3.5 mmol/L (3.6-5.2); SODIUM 153 mmol/L (136-145)
[2018-09-06] VITALS (13 sets, daily range): BP systolic 104–146; BP diastolic 58–74; TEMP 97.5–98
[2018-09-06] MEDS ORDERED: GABA300C2 PO (02:22)
[2018-09-06] MEDS ORDERED: DULO60CA2 PO (02:26)
[2018-09-06] MEDS ORDERED: MULTI VITAMIN1 TAB PO (02:28)
[2018-09-06] MEDS ORDERED: ZANTAC300 MG PO (02:30)
[2018-09-06] MEDS ORDERED: SPIRONOLACT25 MG PO (02:31)
[2018-09-06] MEDS ORDERED: WARF4TAB7 PO (02:32)
[2018-09-07] VITALS (24 sets, daily range): BP systolic 108–1129; BP diastolic 46–70; TEMP 97.8–98.4
[2018-09-07 10:40] LABS: PLATELET COUNT 206 K/uL (152-353)
[2018-09-07 10:44] LABS: POTASSIUM 3.6 mmol/L (3.6-5.2)
[2018-09-08] VITALS (22 sets, daily range): BP systolic 122–174; BP diastolic 57–85; TEMP 97.8–99.4
[2018-09-09] VITALS (16 sets, daily range): BP systolic 119–161; BP diastolic 55–85; TEMP 97.3–99.3
[2018-09-09 05:51] LABS: POTASSIUM 2.4 mmol/L (3.6-5.2)
[2018-09-09 13:04] LABS: POTASSIUM 3.6 mmol/L (3.6-5.2)
== END 2018-09-09 15:00 | DRG 683 ==
LOC: ICU 20:45
PROVIDERS: ADMIT Internal Medicine
DX: I12.9 Hypertensive chronic kidney disease with stage 1 through stage 4 chronic kidney disease, or unspecified chronic kidney disease (principal); N18.4 Chronic kidney disease, stage 4 (severe); E87.0 Hyperosmolality and hypernatremia; N17.8 Other acute kidney failure; E11.22 Type 2 diabetes mellitus with diabetic chronic kidney disease; Z79.4 Long term (current) use of insulin; E11.65 Type 2 diabetes mellitus with hyperglycemia; R41.82 Altered mental status, unspecified; G30.8 Other Alzheimer's disease; F02.80 Dementia in other diseases classified elsewhere, unspecified severity, without behavioral disturbance, psychotic disturbance, mood disturbance, and anxiety; E87.8 Other disorders of electrolyte and fluid balance, not elsewhere classified
CPT/HCPCS: 80048; 80053; 83605; 85027; 87040; 93005; J1815; J3490

== ENCOUNTER 2018-09-09 12:02 | Inpatient (IN) | payer OTHER ==
[~2018-09-09 12:02] MED LIST changes: +DULO60CA2 PO; +GABA300C2 PO; +MULTI VITAMIN1 TAB PO; +SPIRONOLACT25 MG PO; +WARF4TAB7 PO; +ZANTAC300 MG PO
== END 2018-10-10 11:37 | disposition still patient (30) ==
LOC: PAVB 12:02
PROVIDERS: ADMIT Internal Medicine

== ENCOUNTER 2018-09-13 06:27 | Outpatient (CLI) | payer OTHER | END 2018-09-13 23:45 | disposition home or self-care (01) | LOC: LAB 06:27 | DX: E11.9 Type 2 diabetes mellitus without complications (principal) | CPT/HCPCS: 83036 ==

== ENCOUNTER 2018-10-10 11:51 | Inpatient (IN) | payer OTHER | END 2018-11-02 08:00 | disposition E | LOC: PAVB 11:51 | PROVIDERS: ADMIT Internal Medicine ==

== ENCOUNTER 2018-11-02 20:25 | Emergency (ER) | payer OTHER ==
[~2018-11-02] VITALS: Ht 172.7 cm; Wt 59.9 kg
[2018-11-02 20:49] VITALS: BP 00/00; TEMP 96.7
== END 2018-11-02 22:06 | disposition expired ==
LOC: ED 20:25
DX: I46.9 Cardiac arrest, cause unspecified (principal)
CPT/HCPCS: 31500; 36415; 92950; 96374; 99285; 99291; J0171; J0461